=== PATIENT | male | born 1980 | race Caucasian/White ===

== ENCOUNTER 2020-09-09 17:48 | Emergency (ER) | payer OTHER ==
[~2020-09-09] VITALS: Ht 180.3 cm; Wt 81.7 kg
[~2020-09-09 17:48] MED LIST: NOHOMEMEDICATIONS
[2020-09-09 17:59] VITALS: BP 139/80
== END 2020-09-09 19:04 | disposition home or self-care (01) ==
LOC: ER 17:48
DX: S61.211A Laceration without foreign body of left index finger without damage to nail, initial encounter (principal); F12.90 Cannabis use, unspecified, uncomplicated; W26.0XXA Contact with knife, initial encounter; Y93.89 Activity, other specified; Y92.89 Other specified places as the place of occurrence of the external cause; Y99.9 Unspecified external cause status

== ENCOUNTER 2020-09-22 12:42 | Emergency (ER) | payer OTHER ==
[~2020-09-22] VITALS: Ht 180.3 cm; Wt 79.4 kg
[2020-09-22 12:44] VITALS: BP 143/84
== END 2020-09-22 13:05 | disposition home or self-care (01) ==
LOC: ER 12:42
DX: S61.211D Laceration without foreign body of left index finger without damage to nail, subsequent encounter (principal); X58.XXXD Exposure to other specified factors, subsequent encounter